=== PATIENT | male | born 1970 | race Caucasian/White ===

== ENCOUNTER 2020-06-09 16:07 | Emergency (ER) | payer MEDICAID ==
[~2020-06-09] VITALS: Ht 185.4 cm; Wt 104.5 kg
[2020-06-09 16:17] VITALS: BP 124/101
== END 2020-06-09 16:45 | disposition left against medical advice (07) ==
LOC: EMS 16:07
DX: M54.5 Low back pain (principal); Z53.21 Procedure and treatment not carried out due to patient leaving prior to being seen by health care provider

== ENCOUNTER 2020-06-11 07:20 | Emergency (ER) | payer MEDICAID ==
[~2020-06-11] VITALS: Ht 185.4 cm; Wt 104.5 kg
[2020-06-11] MEDS ORDERED: CYCLOBENZAPRINE HCL 10 MG TABLET PO ONE (08:15)
[2020-06-11 08:32] VITALS: BP 133/85
== END 2020-06-11 08:40 | disposition home or self-care (01) ==
LOC: EMS 07:25
DX: M54.5 Low back pain (principal); F41.9 Anxiety disorder, unspecified; Z91.041 Radiographic dye allergy status